=== PATIENT | female | born 1990 | race Caucasian/White ===

== ENCOUNTER 2020-03-05 09:56 | Day surgery (SDC) | payer OTHER ==
[~2020-03-05] VITALS: Ht 170.2 cm; Wt 90.0 kg
[2020-03-05] MEDS ORDERED: ZYRTEC5 MG PO (10:15)
[2020-03-05] MEDS ORDERED: DESYREL 50MG50 MG PO (10:16)
[2020-03-05] MEDS ORDERED: CELEBREX 200MG200 MG PO (10:17)
[2020-03-05 10:24] VITALS: BP 118/68; PULSE 64
[2020-03-05] MEDS ORDERED: CEPHALEXIN500 M1 PO (12:39)
--- NOTE | 2020-03-05 13:17 | NUR ---
Discharged home to POV via wheelchair with driving. Loop recorder device box and instructions sent home with patient
== END 2020-03-05 13:17 | disposition home or self-care (01) ==
LOC: COL.CAR 09:56
DX: I49.3 Ventricular premature depolarization (principal); R53.83 Other fatigue; J45.909 Unspecified asthma, uncomplicated; G43.909 Migraine, unspecified, not intractable, without status migrainosus; Z88.8 Allergy status to other drugs, medicaments and biological substances

== ENCOUNTER 2024-02-27 13:00 | Emergency (ER) | payer OTHER ==
[~2024-02-27] VITALS: Ht 170.2 cm; Wt 93.2 kg
[~2024-02-27 13:00] MED LIST: ADDERALL XR20 MG PO; CARDIZEM CD 12120 MG PO; CELEBREX 200MG200 MG PO; CEPHALEXIN500 M1 PO; CLARITIN 1010 MG/TAB PO; DESYREL 50MG50 MG PO; MAXALT10 MG PO; PRIL40 PO
[2024-02-27 13:11] VITALS: TEMP 97
[2024-02-27 13:25] LABS: BASO % 0.4 % (0.0-2.0); EOS # 0.1 K/mm3 (0.0-0.7); EOS % 0.6 % (0.0-4.0); GRAN # 8.4 K/mm3 (1.4-6.5); GRAN % 77.2 % (42.2-75.2); HEMATOCRIT 41.1 % (37.0-47.0); HEMOGLOBIN 13.5 g/dl (12.5-16.0); LYMPH # 1.5 K/mm3 (1.2-3.4); LYMPH % 13.5 % (20.0-51.0); MEAN CELL VOLUME 90 fl (80.0-100.0); MEAN CORPUSCULAR HEMOGLOBIN 29 pg (27-31); MEAN CORPUSCULAR HGB CONC 33 g/dl (33.0-37.0); MEAN PLATELET VOLUME 12.3 fl (7.4-10.4); MONO # 0.9 K/mm3 (0.1-0.6); MONO % 7.9 % (1.7-9.3); PLATELET COUNT 272 K/mm3 (130-400); RED BLOOD COUNT 4.59 M/mm3 (4.10-5.30); REDCELL DISTRIBUTION WIDTH-CV 13.2 % (11.5-14.5)
[2024-02-27] MEDS ORDERED: Ketorolac 15 MG/ML VIAL IV ONE (13:30)
[2024-02-27] MEDS ORDERED: Ondansetron 4 MG/2 ML VIAL IV ONE (13:30)
[2024-02-27 13:41] LABS: ALBUMIN 4.6 g/dL (3.5-5.0); CALCIUM 9.6 mg/dL (8.4-10.2); CREATININE, serum 0.89 mg/dL (0.57-1.11); POTASSIUM 3.8 mEq/L (3.5-4.5); TOTAL PROTEIN 8.2 g/dl (6.2-8.1)
[2024-02-27 13:57] LABS: BILIRUBIN,TOTAL 1.3 mg/dL (0.2-1.2)
[2024-02-27] MEDS ORDERED: NS 1,000 ML IV ONE (15:00)
[2024-02-27 15:59] LABS: URINE APPEARANCE TURBID (CLEAR/HAZY); URINE BLOOD NEGATIVE (NEGATIVE); URINE COLOR Dark Yellow (YELLOW); URINE GLUCOSE NEGATIVE (NEGATIVE); URINE KETONE TRACE (NEGATIVE); URINE NITRATE NEGATIVE (NEGATIVE); URINE PROTEIN(semi-quant) 2+ (NEGATIVE)
[2024-02-27] MEDS ORDERED: HYDROmorphone 0.5 MG/0.5 ML SYRINGE IV PRN (16:00)
[2024-02-27] MEDS ORDERED: LR 1,000 ML IV SCH (16:00)
[2024-02-27] MEDS ORDERED: Ondansetron 4 MG/2 ML VIAL IV PRN (16:00)
[2024-02-27 16:23] LABS: COLLECTION METHOD CLEAN CATCH
[2024-02-27 16:43] VITALS: BP 129/66; PULSE 58
[2024-02-27] MEDS ORDERED: NORCO 325 MG-51 TAB PO (16:44)
[2024-02-27] MEDS ORDERED: AMOXICILLIN 8751 TAB PO (16:44)
[2024-02-27] MEDS ORDERED: PHENERGAN 25 TA25 MG PO (16:44)
[2024-02-27] MEDS ORDERED: Morphine 4 MG/ML VIAL IV ONE (16:45)
[2024-02-28] MEDS ORDERED: MOTRIN 600600 MG/TAB PO (16:24)
== END 2024-02-27 17:10 | disposition home or self-care (01) ==
LOC: COL.ER 13:00
PROVIDERS: Physician Assistant
DX: K81.9 Cholecystitis, unspecified (principal)
CPT/HCPCS: J1885; J2270; J2405; J2543; J7030

== ENCOUNTER 2024-02-28 12:44 | Day surgery (SDC) | payer OTHER ==
[2024-02-28] VITALS (7 sets, daily range): BP systolic 111–130; BP diastolic 62–75; PULSE 46–77; TEMP 97.2–97.6
[~2024-02-28] VITALS: Ht 170.2 cm; Wt 94.1 kg
[~2024-02-28 12:44] MED LIST changes: +AMOXICILLIN 8751 TAB PO; +Indocyanine Green 12.5 MG in Water For Injection,Sterile 2.5 ML IV SCH; +LR 1,000 ML IV SCH; +Meclizine 25 MG TAB PO SCH; +NORCO 325 MG-51 TAB PO; +PHENERGAN 25 TA25 MG PO
[2024-02-28 14:05] LABS: BASO % 0.5 % (0.0-2.0); EOS # 0.1 K/mm3 (0.0-0.7); EOS % 0.6 % (0.0-4.0); GRAN # 7.4 K/mm3 (1.4-6.5); GRAN % 85.2 % (42.2-75.2); HEMATOCRIT 37.6 % (37.0-47.0); HEMOGLOBIN 12.2 g/dl (12.5-16.0); LYMPH # 0.7 K/mm3 (1.2-3.4); LYMPH % 7.8 % (20.0-51.0); MEAN CELL VOLUME 89 fl (80.0-100.0); MEAN CORPUSCULAR HEMOGLOBIN 29 pg (27-31); MEAN CORPUSCULAR HGB CONC 32 g/dl (33.0-37.0); MEAN PLATELET VOLUME 12.7 fl (7.4-10.4); MONO # 0.5 K/mm3 (0.1-0.6); MONO % 5.7 % (1.7-9.3); PLATELET COUNT 240 K/mm3 (130-400); RED BLOOD COUNT 4.24 M/mm3 (4.10-5.30); REDCELL DISTRIBUTION WIDTH-CV 13.4 % (11.5-14.5)
[2024-02-28 14:07] LABS: ALBUMIN 4.2 g/dL (3.5-5.0); BILIRUBIN,TOTAL 3.5 mg/dL (0.2-1.2); CALCIUM 8.6 mg/dL (8.4-10.2); CREATININE, serum 0.85 mg/dL (0.57-1.11); POTASSIUM 4.1 mEq/L (3.5-4.5); TOTAL PROTEIN 7.4 g/dl (6.2-8.1)
[2024-02-28] MEDS ORDERED: HYDROmorphone 1 MG/1 ML SYRINGE [PACU/SDC ONLY] IV PRN (14:15)
[2024-02-28] MEDS ORDERED: hydrALAZINE 20 MG/ML 1 ML VIAL IV PRN (14:15)
[2024-02-28] MEDS ORDERED: fentaNYL 50 MCG/ML 1 ML SYRINGE/VIAL [PACU/SDC ONLY] IV PRN (14:15)
[2024-02-28] MEDS ORDERED: Ondansetron 4 MG/2 ML VIAL IV PRN (14:15)
[2024-02-28] MEDS ORDERED: Glycopyrrolate 0.2 MG/ML 1 ML VIAL ONE (14:54)
[2024-02-28] MEDS ORDERED: dexAMETHasone 10 MG/ML VIAL ONE ×2 (14:54)
[2024-02-28] MEDS ORDERED: NS 10 ML IV ONE (14:54)
[2024-02-28] MEDS ORDERED: fentaNYL 50 MCG/ML 2 ML VIAL ONE (14:54)
[2024-02-28] MEDS ORDERED: Ondansetron 4 MG/2 ML VIAL ONE ×2 (14:54)
[2024-02-28] MEDS ORDERED: Lidocaine PF 2% (20 MG/ML) 5 ML VIAL ONE (14:54)
[2024-02-28] MEDS ORDERED: Rocuronium 50 MG/5 ML Multi-Dose VIAL ONE (14:54)
[2024-02-28] MEDS ORDERED: MOTRIN 600600 MG/TAB PO (16:24)
[2024-02-28] MEDS ORDERED: Iohexol 350 - 100 ML VIAL BILE DUCT ONE (17:20)
[2024-02-28] MEDS ORDERED: Topical Skin Adhesive 1 EACH (1 ML) TOP ONE (17:20)
--- NOTE | 2024-02-28 19:35 | NUR ---
pt arrived to room 348 at 1935. pt is tearful but rating pain 2/10. abd lap sites x5 well approximated without drsg. post op vitals initiated. at bedside. pt tolerating clears well. pt ambulated to bathroom independently without issue. call light in reach. all needs met at this time.
--- NOTE | 2024-02-28 20:51 | NUR ---
discharge instructions provided. pt education given. iv dc'd. f/u appt discussed. medications reviewed. pt denies questions or concerns. pt escorted out with belongings via [place].
== END 2024-02-28 20:45 | disposition home or self-care (01) ==
LOC: SDCO 12:44 → SURG 19:16 → SDCO 20:45
PROVIDERS: Surgery
DX: K80.00 Calculus of gallbladder with acute cholecystitis without obstruction (principal); K21.9 Gastro-esophageal reflux disease without esophagitis
CPT/HCPCS: OP; J0690; J1100; J1170; J2405; J2704; J3010; J7120; Q9967